=== PATIENT | male | born 1975 | race African-American/Black ===

== ENCOUNTER 2019-11-17 09:21 | Day surgery (SDC) | payer OTHER ==
[2019-11-17 09:51] VITALS: BMI 29.5
--- NOTE | 2019-11-17 10:47 | HP ---
History & Physical Update - History History: No Change - Physical Physical: No Change - Assessment Assessment: No Change - Plan Plan: No Change
--- NOTE | 2019-11-17 10:49 | OP ---
Operative Note - Note: Operative Date: 11/17/19 Pre-Operative Diagnosis: prostate cancer Operation: prostate cryoablation and cystoscopy Post-Operative Diagnosis: Same as Pre-op Surgeon: Parvez Alfonso Anesthesiologist/TRADING ASSISTANT: Juan Leonard Anesthesia: General Estimated Blood Loss (mls): 0 Drains & Tubes with Location: 18 fr paredes Operative Report Dictated: Yes
[2019-11-17] MEDS ORDERED: MIDAZOLAM HCL 2 MG/2 ML SINGLE DOSE VIAL ONE (11:03)
[2019-11-17] MEDS ORDERED: PROPOFOL 20 ML ONE ×2 (11:03)
[2019-11-17] MEDS ORDERED: SODIUM CHLORIDE 0.9% P/F 10 ML VIAL IJ ONE (11:16)
[2019-11-17] MEDS ORDERED: ceFAZolin SODIUM 1 GM VIAL ONE (11:16)
[2019-11-17] MEDS ORDERED: ceFAZolin SODIUM 1 GM VIAL IVPB ONE (11:23)
[2019-11-17] MEDS ORDERED: BACITRACIN 15 GM TUBE TOPICAL OINTMENT ONE (11:51)
[2019-11-17] MEDS ORDERED: PROMETHAZINE HCL 25 MG/1 ML VIAL IVPB PRN (12:52)
[2019-11-17] MEDS ORDERED: ONDANSETRON 4 MG/2 ML VIAL IVPUSH PRN (12:52)
[2019-11-17] MEDS ORDERED: oxyCODONE HCL 5 MG TABLET PO PRN (12:52)
[2019-11-17] MEDS ORDERED: LACTATED RINGERS SOLUTION 1,000 ML IV SCH (13:00)
--- NOTE | 2019-11-17 13:07 | OP ---
DATE OF OPERATION: 11/17/2019 PREOPERATIVE DIAGNOSIS: Prostate cancer. POSTOPERATIVE DIAGNOSIS: Prostate cancer PROCEDURE: Prostate cryoablation and cystoscopy. SURGEON: Parvez Durbin MD FOREIGN CLERK: None. ANESTHESIA: General via laryngeal mask. ANESTHESIOLOGIST: Juan Leonard MD SPECIMENS: None. CULTURES: None. DRAINS: An 18-[place] Donald catheter. ESTIMATED BLOOD LOSS: None. COMPLICATIONS: None. PROCEDURE: Patient was brought in the operating room and placed on the operating table in the supine position. After the administration of general anesthesia via laryngeal mask, intravenous antibiotics were administered. Sequential compression devices were placed. Patient was placed in the dorsal lithotomy position. Perineum was shaved first, then the perineum and genitals were prepped and draped in the usual sterile manner. An 18-[place] Donald catheter was placed per urethra into the bladder, 10 mL was placed in the balloon, the urine was evacuated, and the bladder was then filled with 400 mL of sterile normal saline, and clamped. Transrectal ultrasound probe was inserted, and transrectal ultrasound of the prostate was done, and the plan was devised for cryoablation of the prostate using 8 probes. Now, once the plan was devised, the 8 probes were placed in the appropriate location under ultrasound guidance. Now, two temperature sensors were placed, one in [place] fascia and one in the external sphincter. Now, their position was checked under the longitudinal view and measurements were taken and the length of the probe-freezing area was set with the sliders. Now, the Donald catheter was removed and a flexible cystoscopy was performed. showed a normal anterior urethra. The prostatic urethra was short; no probes entered the prostatic urethra. The bladder was entered and thoroughly inspected. There were no foreign bodies, tumors, stones, inflammation. Both ureteral orifices were in their usual location with clear efflux bilaterally. There was a median lobe. The scope was retroflexed on the bladder neck and no probes were seen entering the bladder. Bladder was left full and a Super Stiff guide wire was inserted through the cystoscope into the bladder. The cystoscope was removed, and a urethral warmer was placed over the Super Stiff guide wire, and the urethral warmer was started. Now, the cryoablation was done with two freeze-thaw cycles with excellent freezing of the prostate. At the end of the procedure, temperature sensors and cryoablation probes were removed, leaving the urethral warmer in for an additional 5 minutes. Direct pressure on the perineum achieved hemostasis. A sterile compressive dressing of bacitracin, 4 x 4, and Tegaderm was applied. The 18-[place] Donald catheter was replaced, placed on gravity drainage, and returned clear. He tolerated procedure well and transferred to recovery room in stable condition. PARVEZ DURBIN M.D. [id number]
[2019-11-17 17:40] VITALS: BP 154/93; PULSE 92; TEMP 97.8
== END 2019-11-17 17:45 | disposition home or self-care (01) ==
LOC: JASU-SURG 09:21
PROVIDERS: ATTEND Urology
PROC: 0V503ZZ Destruction of Prostate, Percutaneous Approach (ICD-10-PCS; principal; 2019-11-17 13:30)
DX: C61 Malignant neoplasm of prostate (principal)
CPT/HCPCS: 55873; C2618; 82962; 94760

== ENCOUNTER → 2020-12-12 | Day surgery (SDC) | payer OTHER ==
[2020-12-10 17:41] VITALS: BMI 31.0
[~2020-12-12] MED LIST: BUPIVACAINE HCL/PF 0.5% (5 MG/ML) 30 ML VIAL IJ ONE; IBUPROFEN 800 MG/8 ML IJ IVPB ONE; IBUPROFEN 800 MG/8 ML IJ IVPB PRN; LACTATED RINGERS SOLUTION 1,000 ML IV SCH; LIDOCAINE HCL/PF 2% SDV 5ML VIAL ONE; MIDAZOLAM HCL 2 MG/2 ML SINGLE DOSE VIAL ONE; PROPOFOL 20 ML ONE; ceFAZolin SODIUM 1 GM VIAL IVPB ONE; ceFAZolin SODIUM 1 GM VIAL ONE
[2020-12-12 15:57] VITALS: BP 148/94; PULSE 95; TEMP 97.7
== END | disposition home or self-care (01) ==
LOC: JASU-SURG 04:14
PROVIDERS: ATTEND Urology
PROC: 0VTTXZZ Resection of Prepuce, External Approach (ICD-10-PCS; principal; 2020-12-12 13:00)
DX: N47.1 Phimosis (principal); E11.9 Type 2 diabetes mellitus without complications; I10 Essential (primary) hypertension; Z79.84 Long term (current) use of oral hypoglycemic drugs
CPT/HCPCS: 82962; 88304-TC; 94760